=== PATIENT | male | born 1955 | race Caucasian/White ===

== ENCOUNTER 2016-10-21 06:11 | Emergency (ER) | payer OTHER ==
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
--- NOTE | 2016-10-21 07:04 | Diagnostic Imaging Report ---
IRAJ CASTLE [facility] [id number] [facility] [address] [address] Report Submission Date: Oct 21, 2016 7:02:41 AM CDT Patient Study Name: FERCHO AGUILAR Date: Oct 21, 2016 6:29:47 AM CDT Modality Type: CR Gender: M Description: LOWER EXTREMITY : 55 Institution: [facility] Physician: IRAJ CASTLE Left 1st toe, 3 views History: Injury, pain, swelling Findings: The osseous, joint and soft tissue structures are normal. Impression: Normal. Electronically signed on Oct 21, 2016 7:02:41 AM CDT by: Rolly YEBOAH
[2016-10-21 07:12] VITALS: BP 118/60
== END 2016-10-21 07:10 | disposition home or self-care (01) ==
LOC: ED 06:11
DX: S93.502A Unspecified sprain of left great toe, initial encounter (principal); X58.XXXA Exposure to other specified factors, initial encounter; Y93.9 Activity, unspecified; Y99.9 Unspecified external cause status
CPT/HCPCS: 73660; 99283